=== PATIENT | female | born 1975 | race Hispanic/Latino ===

== ENCOUNTER 2016-06-04 16:04 | Emergency (ER) | payer OTHER ==
[~2016-06-04] VITALS: Ht 170.2 cm; Wt 94.3 kg
[~2016-06-04 16:04] MED LIST: AUGMENTIN 500-1 EACH PO; AUGMENTIN 875 M1 TAB PO; B COMPLETE1 EACH PO; MOTRIN 600 MG600 MG PO; NORCO 5-325 TA1 EACH PO; ULTRAM(MONOGRAP50 MG PO; VITAMIN C250 M3 PO
--- NOTE | 2016-06-04 16:42 | ED CARDIAC/CP/PALPITATIONS ---
History of Present Illness General Chief Complaint: Chest Pain Stated Complaint: CP Source: patient Exam Limitations: no limitations Vital Signs & Intake/Output Vital Signs & Intake/Output Vital Signs Date Time Temp Pulse Resp B/P Pulse O2 O2 Flow FiO2 Ox Delivery Rate 06/04 1713 96 Room Air 06/04 1700 136/68 06/04 1619 97.4 73 16 165/113 98 Room Air ED Intake and Output 06/05 0000 06/04 1200 Intake Total Output Total Balance Patient 208 lb Weight Allergies Coded Allergies: NO KNOWN ALLERGIES (10/18/12) Reconcile Medications Butalb/Acetaminophen/Caffeine (Fioricet 50-300-40 MG Capsule) 50 MG-300 MG-40 MG CAPSULE 1 TAB PO DAILY MIGRAINES (Reported) Hydrochlorothiazide 25 MG TABLET 1 TAB PO DAILY HTN (Reported) Triage Note: RECEIVED 40 YO FEMALE C/O ANTERIOR CHEST AND BACK PAIN X 2 DAYS. PT ON B/P MEDS, NO BC MEDS. PT HAS IUD. PT REPORTS SYMPTOMS WORSE AT NIGHT WITH FATIGUE. DRY COUGH. EKG DONE PRIOR TO TRIAGE Triage Nurses Notes Reviewed? yes : No Patient currently breastfeeds: No HPI: Patient is a 40 year old female presents complaining of chest pain. Chest pain onset 2 days ago. Pain is a tightness sensation with intermittent sharp pains. Today pain began radiating to the back. Symptoms are currently moderate, mildly worsen with deep breath. 2 weeks of bitemporal dull headaches and neck stiffness. Diagnosed with tension headaches by her primary doctor, placed on fioricet with no improvement. Patient has checked her blood pressure when the headaches occur and reports her blood pressure has been normal during the episodes. (LAURIE PARRISH) Past History Travel History Traveled to [place] past 21 day No Medical History Any Pertinent Medical History? see below for history Neurological: NONE EENT: NONE Cardiovascular: hypertension Respiratory: NONE Gastrointestinal: NONE Hepatic: NONE Renal: NONE Musculoskeletal: NONE Psychiatric: anxiety Endocrine: NONE Blood Disorders: anemia Cancer(s): NONE Surgical History Surgical History: SCAR REVISION gastric bypass left brachial nerve surgery Psychosocial History What is your primary language Bel[place]ian Tobacco Use: Never used Family History Hx Contributory? Yes (father [place] when patient was 13) (LAURIE PARRISH) Review of Systems Review of Systems Constitutional: Denies: chills, fever. EENTM: Reports: visual changes (intermittent for several weeks). Respiratory: Denies: cough, short of breath. Cardiovascular: Reports: see HPI. GI: Denies: abdominal pain, vomiting. Genitourinary: Reports: no symptoms. Musculoskeletal: Reports: back pain. Skin: Reports: no symptoms. Neurological/Psychological: Reports: see HPI. Hematologic/Endocrine: Reports: no symptoms. Immunologic/Allergic: Reports: no symptoms. (LAURIE PARRISH) Physical Exam Physical Exam General Appearance: well developed/nourished, alert, awake Head: atraumatic, normal appearance Eyes: Bilateral: normal appearance, PERRL, EOMI. Ears, Nose, Throat: normal pharynx, normal ENT inspection, hearing grossly normal Neck: normal inspection, supple, full range of motion, no appreciable carotid bruit Respiratory: normal breath sounds, chest non-tender, no respiratory distress, lungs clear Cardiovascular: regular rate/rhythm (no appreciable murmur) Peripheral Pulses: 2+ radial (R), 2+ radial (L), 2+ dorsalis pedis (R), 2+ dorsalis pedis (L) Gastrointestinal: soft, non-tender Back: normal inspection, normal range of motion Extremities: normal inspection, normal capillary refill, normal range of motion, no edema, no calf tenderness Neurologic/Psych: no motor/sensory deficits, awake, alert, oriented x 3, normal gait, normal mood/affect, no dysmetria Skin: intact, normal color, warm/dry Lymphatic: no anterior cervical parker Core Measures ACS in differential dx? Yes ASA ordered for poss ACS? No-ACS ruled out Severe Sepsis Present: No Septic Shock Present: No (LAURIE PARRISH) Progress Differential Diagnosis: AMI, aortic dissection, atrial fibrillation, CHF/pulm edema, costochondritis, hyperthyroid, hyperventilation, musculoskeletal pain, myocarditis, pericarditis, pneumonia, pneumothorax, pulmonary embolism, PUD/GERD , unstable angina, WPW syndrome Plan of Care: Orders Procedure Date/time Status Telemetry/Stock Grader 06/04 1638 Active TROPONIN LEVEL 06/04 1638 Complete D-DIMER 06/04 1638 Complete COMPREHENSIVE METABOLIC PANEL 06/04 1638 Complete CBC WITHOUT DIFFERENTIAL 06/04 1638 Complete EKG 06/04 1606 Active Laboratory Tests 06/04/16 1653: Anion Gap 9, Estimated GFR > 60, BUN/Creatinine Ratio 20.0, Glucose 123 H, Calcium 9.1, Total Bilirubin 0.3, AST 26, ALT 45, Alkaline Phosphatase 53, Troponin I < 0.01, Total Protein 7.2, Albumin 3.8, Globulin 3.4, Albumin/ Globulin Ratio 1.1, D-Dimer < 200, CBC w Diff NO MAN DIFF REQ, RBC 4.00 L, MCV 85.0, MCH 27.5, RDW 15.9 H, MPV 9.2, Gran % 63.7, Lymphocytes % 29.0, Monocytes % 4.9, Eosinophils % 1.7, Basophils % 0.7, Absolute Granulocytes 3.5, Absolute Lymphocytes 1.6, Absolute Monocytes 0.3, Absolute Eosinophils 0.1, Absolute Basophils 0, PUBS MCHC 32.3 L Symptoms for greater than 24 hours with no acute ischemic EKG changes and negative troponin. D-dimer negative. Pulses symmetric in bilateral upper and lower extremities. Patient appears stable for discharge with close outpatient follow-up. Patient struck follow up with her primary care doctor also provided patient with information for cardiology follow-up. 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 Call in the morning for appointment. Return to the ER if worsening of symptoms. Departure Forms: Customer Survey General Discharge Information (LAURIE PARRISH) PA/HAND I THERMAL CUTTER Co-Sign Statement Statement: ED Attending supervision documentation- [] I saw and evaluated the patient. I have also reviewed all the pertinent lab results and diagnostic results. I agree with the findings and the plan of care as documented in the PA's/HAND I THERMAL CUTTER's documentation. [X] I have reviewed the ED Record and agree with the PA's/HAND I THERMAL CUTTER's documentation. [] Additions or exceptions (if any) to the PAs/HAND I THERMAL CUTTER's note and plan are summarized below: [] (ARIANA ANDRADE,LORNE) Critical Care Note Critical Care Note Critical Care Time: non-applicable (MONIKA CAMERON,LAURIE)
[2016-06-04 17:00] VITALS: BP 136/68
[2016-06-04 17:05] LABS: ABSOLUTE BASOPHIL COUNT 0 /CUMM (0.0-0.2); ABSOLUTE EOSINOPHIL COUNT 0.1 /CUMM (0.0-0.7); ABSOLUTE GRANULOCYTE CT 3.5 /CUMM (1.4-6.5); ABSOLUTE LYMPH COUNT 1.6 /CUMM (1.2-3.4); ABSOLUTE MONOCYTE COUNT 0.3 /CUMM (0.10-0.60); BASOPHIL % 0.7 % (0.0-2.0); EOSINOPHIL % 1.7 % (0-5); GRANULOCYTE % 63.7 % (42.2-75.2); MEAN CORPUSCULAR HGB 27.5 PG (27.0-31.0); MEAN CORPUSCULAR HGB CONC 32.3 G/DL (33.0-37.0); MEAN PLATELET VOLUME 9.2 FL (7.4-10.4); PLATELET COUNT 211 /CUMM (130-400); RBC DISTRIBUTION WIDTH 15.9 % (11.5-14.5); WHITE BLOOD CELL COUNT 5.5 /CUMM (4.8-10.8)
[2016-06-04] MEDS ORDERED: HYDROCHLOROTHIA25 M1 PO (17:20)
[2016-06-04] MEDS ORDERED: FIORICET 50-301 EACH PO (17:21)
== END 2016-06-04 17:57 ==
LOC: ERH 16:04
PROVIDERS: Physician Assistant
DX: R07.9 Chest pain, unspecified (principal)
CPT/HCPCS: 93005; 93010